=== PATIENT | male | born 1950 | race Caucasian/White ===

== ENCOUNTER → 2016-08-15 | Outpatient (CLI) | payer BC | LOC: CARDREHAB 07:52 | DX: I48.0 Paroxysmal atrial fibrillation (principal); I10 Essential (primary) hypertension; R53.83 Other fatigue; R61 Generalized hyperhidrosis ==

== ENCOUNTER → 2020-07-27 | Day surgery (SDC) | payer MEDICARE | LOC: MSO 07:26 | DX: R19.5 Other fecal abnormalities (principal); K63.89 Other specified diseases of intestine; E66.01 Morbid (severe) obesity due to excess calories; I10 Essential (primary) hypertension; E11.9 Type 2 diabetes mellitus without complications; I48.91 Unspecified atrial fibrillation; G47.33 Obstructive sleep apnea (adult) (pediatric); Z99.89 Dependence on other enabling machines and devices; Z79.899 Other long term (current) drug therapy; Z79.01 Long term (current) use of anticoagulants | CPT/HCPCS: 00812; J2704; J3010; J7120 ==